=== PATIENT | female | born 1980 | race Caucasian/White ===

== ENCOUNTER 2018-03-23 23:50 | Emergency (ER) | payer OTHER ==
[~2018-03-23] VITALS: Ht 167.6 cm; Wt 65.0 kg
[2018-03-23 23:51] VITALS: BP 156/106
[2018-03-24] MEDS ORDERED: LIDOCAINE-MPF 1%, 2ML ONE (00:57)
== END 2018-03-24 01:51 | disposition home or self-care (01) ==
LOC: ED 23:59
DX: L03.211 Cellulitis of face (principal); L02.01 Cutaneous abscess of face
CPT/HCPCS: 10060; 99283

== ENCOUNTER 2018-07-16 01:08 | Emergency (ER) | payer OTHER ==
[~2018-07-16] VITALS: Ht 167.6 cm; Wt 65.5 kg
[2018-07-16] MEDS ORDERED: PHENAZOPYRIDINE 200 MG TABLET PO ONE (01:30)
[2018-07-16] MEDS ORDERED: PHENAZOPYRIDINE 200 MG TABLET ONE (01:38)
[2018-07-16 01:51] LABS: CULTURE INDICATED? YES; MICROSCOPIC INDICATED
[2018-07-16] MEDS ORDERED: CEFTRIAXONE 250 MG IM ONE (02:00)
[2018-07-16] MEDS ORDERED: AZITHROMYCIN 500 MG TABLET PO ONE (02:00)
[2018-07-16 02:05] LABS: BASOPHILS # (AUTO) 0.02 x10^3/uL (0-0.1); BASOPHILS % (AUTO) 0 % (0-1); EOSINOPHILS % (AUTO) 0 % (1-7); LYMPHOCYTES # (AUTO) 1.54 x10^3/uL (1-3.4); LYMPHOCYTES % (AUTO) 11 % (22-44); MD NO; MEAN CORPUSCULAR HEMOGLOBIN 30.7 pg (27.0-34.8); MEAN CORPUSCULAR VOLUME 90.4 fL (80-100); MEAN PLATELET VOLUME 7.9 fL (7.4-10.4); MONOCYTES % (AUTO) 3 % (2-9); NEUTROPHILS # (AUTO) 12.52 x10^3/uL (1.8-6.8); NEUTROPHILS % (AUTO) 86 % (42-75); PLATELET COUNT 279 x10^3/uL (130-400); RED BLOOD COUNT 4.69 x10^6/uL (3.82-5.3); RED CELL DISTRIBUTION WIDTH 13.1 % (9.6-15.2)
[2018-07-16 02:17] LABS: ALANINE AMINOTRANSFERASE 17 U/L (12-78); ANION GAP 7 mmol/L (5-15); CALCIUM 8.1 mg/dL (8.5-10.1); CHLORIDE 108 mmol/L (98-107); CREATININE 0.76 mg/dL (0.55-1.02)
[2018-07-16 02:18] VITALS: BP 146/94
[2018-07-16] MEDS ORDERED: AZITHROMYCIN 500 MG TABLET ONE (02:20)
[2018-07-16] MEDS ORDERED: LIDOCAINE-MPF 1%, 2ML ONE (02:20)
[2018-07-16] MEDS ORDERED: CEFTRIAXONE 250 MG ONE (02:20)
[2018-07-16 02:22] LABS: ALKALINE PHOSPHATASE 42 U/L (45-117); BILIRUBIN,TOTAL 0.5 mg/dL (0.2-1.0); TOTAL PROTEIN 6.8 g/dL (6.4-8.2)
== END 2018-07-16 03:01 | disposition home or self-care (01) ==
LOC: ED 01:49
DX: N10 Acute pyelonephritis (principal); I10 Essential (primary) hypertension; F17.200 Nicotine dependence, unspecified, uncomplicated
CPT/HCPCS: 36415; 80053; 81001; 84703; 85025; 87077; 87086; 87186; 87491; 87591; 96372; 99283; J0696

== ENCOUNTER 2019-09-24 14:04 | Emergency (ER) | payer SELFPAY ==
[~2019-09-24] VITALS: Ht 167.6 cm; Wt 72.4 kg
--- NOTE | 2019-09-24 14:45 | NUR ---
THIS IS A 39 YO F W/ C/O HIGH BP TODAY AND RIGHT SIDED JAW PAIN THAT IS WORSENING. PT IS RESTING ON [place] W/ CALL LIGHT IN REACH. DENIES FURTHER NEEDS.
--- NOTE | 2019-09-24 14:50 | NUR ---
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
[2019-09-24] MEDS ORDERED: LISINOPRIL 10 MG TABLET ONE (15:51)
--- NOTE | 2019-09-24 15:53 | NUR ---
XRAY IN ROOM.
--- NOTE | 2019-09-24 15:56 | NUR ---
PT MEDICATED PER EMAR.
[2019-09-24] MEDS ORDERED: LISINOPRIL 10 MG TABLET PO ONE (16:00)
[2019-09-24 16:06] LABS: BASOPHILS # (AUTO) 0.04 x10^3/uL (0-0.1); BASOPHILS % (AUTO) 0 % (0-1); EOSINOPHILS # (AUTO) 0.23 x10^3/uL (0-0.4); EOSINOPHILS % (AUTO) 2 % (1-7); LYMPHOCYTES # (AUTO) 3.07 x10^3/uL (1-3.4); LYMPHOCYTES % (AUTO) 27 % (22-44); MD NO; MEAN CORPUSCULAR HEMOGLOBIN 31.2 pg (27.0-34.8); MEAN CORPUSCULAR VOLUME 91.9 fL (80-100); MEAN PLATELET VOLUME 8.5 fL (7.4-10.4); MONOCYTES # (AUTO) 0.45 x10^3/uL (0.2-0.8); MONOCYTES % (AUTO) 4 % (2-9); NEUTROPHILS # (AUTO) 7.61 x10^3/uL (1.8-6.8); NEUTROPHILS % (AUTO) 67 % (42-75); PLATELET COUNT 295 x10^3/uL (130-400); RED BLOOD COUNT 4.79 x10^6/uL (3.82-5.3); RED CELL DISTRIBUTION WIDTH 13.2 % (9.6-15.2)
[2019-09-24 16:09] LABS: ALBUMIN 3.6 g/dL (3.4-5.0); ANION GAP 8 mmol/L (5-15); CHLORIDE 106 mmol/L (98-107); CREATININE 0.75 mg/dL (0.55-1.02)
[2019-09-24 16:12] LABS: TROPONIN I < 0.015 ng/mL (0.000-0.045)
--- NOTE | 2019-09-24 16:51 | NUR ---
PT TO RAD.
[2019-09-24 17:23] VITALS: BP 160/99
--- NOTE | 2019-09-24 17:24 | NUR ---
ALL TESTS RESULTED AT THIS TIME. PT IS UP FOR RECHECK.
--- NOTE | 2019-09-24 18:35 | NUR ---
Patient given discharge instructions and they have confirmed that they understand the instructions. Patient ambulatory with steady gait.
== END 2019-09-24 18:36 | disposition home or self-care (01) ==
LOC: ED 18:30
DX: R51 Headache (principal); R21 Rash and other nonspecific skin eruption; I10 Essential (primary) hypertension
CPT/HCPCS: 36415; 70450; 70496; 71045; 80048; 82040; 83880; 84484; 85025; 93005; 99284

== ENCOUNTER 2020-07-17 11:18 | Emergency (ER) | payer OTHER ==
[~2020-07-17] VITALS: Ht 167.6 cm; Wt 80.6 kg
[2020-07-17 11:22] VITALS: BP 152/83
--- NOTE | 2020-07-17 12:35 | NUR ---
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
== END 2020-07-17 14:17 | disposition home or self-care (01) ==
LOC: ED 12:47
DX: M79.662 Pain in left lower leg (principal); M79.661 Pain in right lower leg; I10 Essential (primary) hypertension
CPT/HCPCS: 93970; 99284